=== PATIENT | female | born 1950 | race Hispanic/Latino ===

== ENCOUNTER → 2019-04-17 | Outpatient (CLI) | payer OTHER | END | disposition home or self-care (01) | LOC: RAH 11:54 | PROVIDERS: ATTEND Internal Medicine Cardiovascular Disease | DX: Z13.6 Encounter for screening for cardiovascular disorders (principal) | CPT/HCPCS: 75571 ==

== ENCOUNTER → 2021-07-21 | Outpatient (CLI) | payer MEDICARE | END | disposition home or self-care (01) | LOC: SHCH 09:56 | PROVIDERS: ATTEND Internal Medicine Cardiovascular Disease | DX: E78.5 Hyperlipidemia, unspecified (principal); I35.1 Nonrheumatic aortic (valve) insufficiency; I10 Essential (primary) hypertension; R60.0 Localized edema | CPT/HCPCS: 93306; 93970 ==